=== PATIENT | female | born 1990 | race Two or more races ===

== ENCOUNTER 2024-07-13 06:49 | Emergency (ER) | payer MEDICAID, SELFPAY ==
[2024-07-13 06:51] VITALS: PULSE 68
--- NOTE | 2024-07-13 06:57 | EKG_ITS ---
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
[2024-07-13 07:04] VITALS: BP 116/67; PULSE 68; RESP 16; TEMP 36.9; O2SAT 100
--- NOTE | 2024-07-13 07:15 | EDNOTE_ITS ---
ED Syncope RME/HPI General Chief Complaint: Syncope / Near Syncope Stated Complaint: POSSIBLE SYNCOPAL EPISODE Time Seen by Provider: 07/13/24 07:06 Arrival date/time: 07/13/24 06:49 RME / HPI RME / HPI narrative: 34 year old female with a history of gastric sleeve surgery, cholecystectomy, anxiety (on Clonazepam), presents to the ED [facility] for evaluation of syncopal episodes. The patient reports that while at work today her vision suddenly began blackening. She called out for help and was assisted to a chair, where she lost consciousness. The patient does not recall what occurred while sitting on the chair and woke up to coworkers holding alcohol swabs to her nose. States that while en route home with her , she experienced another episode of blackening vision, accompanied by generalized weakness, and a second syncopal ep isode. States she then woke up to the ambulance personnel assisting her from the car and onto the stretcher. According to her , the patient was speaking normally when she suddenly stopped talking, her body became limp, and she was unresponsive to her name. There was no shaking or stiffening during the event. While in the ED, the patient reports feeling weak and has experienced cold-like symptoms for the past several days. She denies any fevers, chills, chest pain, cough, shortness of breath, abdominal pain, nausea, vomiting, diarrhea, or urinary symptoms. LMP was on 06/25/2024, and she reports being two months late for her period but has not yet taken a test. Related Data Allergies Allergy/AdvReac Type Severity Reaction Status Date / Time No Known Allergies Allergy Verified 09/14/22 17:56 Review of Systems Review of Systems Narrative Review of Systems: Gen: No fever, no chills EYES: No discharge, no visual changes, no pain HEENT: No ear pain, no congestion, no sore throat PULM: no shortness of breath, no cough, no congestion CV: +syncope. No chest pain, no palpitations, no chest tightness GI: No nausea, no vomiting, no diarrhea, no pain, no constipation : No frequency, no urgency,? no dysuria Musc/skel: No joint pain, no back pain Skin: No rash, no ecchymosis, no lesions Psyc: No hallucinations, no depression Heme/Lymph: No easy bleeding or bruising tendencies Neuro: +global weakness, no headache Past Medical History Past Medical History CARDIAC: Negative Cardiac Disorders or Congestive Heart Failure RESPIRATORY: Negative Chronic Obstructive Pulmonary Disease (COPD) or Asthma GENITOURINARY: Negative Renal Disease ENDOCRINE: Negative Diabetes Mellitus Type 1 or Diabetes Mellitus Type 2 HEMATOLOGIC: Negative Sickle Cell Disease (anemic) Social History SMOKING STATUS: Never smoker SUBSTANCE USE: does not use ED Exam Narrative Physical exam: GENERAL APPEARANCE: AxOx4, no obvious distress, nontoxic appearing HEENT: NC, AT. MMM. EOMI, clear conjunctiva, oropharynx clear. NECK: Supple without lymphadenopathy. No stiffness or restricted ROM. HEART: Normal rate and regular rhythm, normal S1/S1, no m/r/g LUNGS: CTAB, moving air well. No crackles or wheezes are heard. ABDOMEN: Soft, nontender, nondistended with good bowel sounds heard. BACK: No midline C/T/L spine pain or deformity, No CVAT, no obvious deformity. EXTREMITIES: Without cyanosis, clubbing or edema. MUSCULOSKELETAL: FROM of all major joints, no chest tenderness NEUROLOGICAL: Grossly nonfocal. Alert and oriented, moving all 4 extremities. CN not formally tested but appear grossly intact. Skin: Warm and dry without any rash. Course Quality Measures none Orders Category Date Time Status EKG (ED ONLY) *Do not use* NOW Care 07/13/24 06:57 Completed EKG (ED Only) Stat Exams 07/13/24 06:57 Draft CBC Stat Lab 07/13/24 07:29 Completed CMP [Comprehensive Metabolic Panel] Stat Lab 07/13/24 07:29 Completed HCG Qualitative,Urine Stat Lab 07/13/24 10:48 Completed Troponin I Stat Lab 07/13/24 07:29 Completed Reevaluation(s) Reevaluation #1: Patient remains clinically stable throughout the emergency department visit. We reviewed all the results, analysis, and treatment plans. Patient is amenable to discharge. Strict return precautions were outlined. Patient was discharged in stable condition. Time: 10:25 Vital Signs Vital signs: Vital Signs Temperature 98.5 F 07/13/24 07:04 Pulse Rate 68 07/13/24 07:04 Respiratory Rate 16 07/13/24 07:04 Blood Pressure 116/67 07/13/24 07:04 Pulse Oximetry (%) 100 07/13/24 07:04 Oxygen Delivery Method Room Air 07/13/24 07:04 Pulse ox is 100% on room air which is adequate. Syncope MDM Narrative MDM Narrative:: Charlene Guevara am scribing for and in the presence of Dr. Crouch. Patient data External records reviewed:: [facility] previous records (I reviewed ED Visit on 01/29/2024 ) and EMS form Clinical information provided by:: patient, EMS and spouse ( adds to hpi) Social determinants that could affect healthcare access:: alcohol use (states she drinks occasionally and last drank 2 days ago ) Patient has the following chronic illnesses:: Anxiety How is presenting disease/condition affected by chronic disease/condition?: exacerbated by Evaluation data The following diagnostics were reviewed and interpreted by me:: lab results and EKG tracing(s) (EKG at 06:59 AM shows sinus rhythm, rate 60, normal axis, normal intervals, no acute ischemic changes, no STEMI. ) Lab and/or radiology exams considered but not ordered:: None Interpretation Summary: As noted above Medications / Prescriptions Medications or Prescriptions considered but not ordered:: None Medication administrations:: None Consultations Consultation(s) initiated? (list below): No Diagnosis Syncope Differential Diagnosis: syncope due to orthostatic hypotension, vasovagal syncope, dehydration and other (Anxiety ) Most likely diagnosis given after review of the tests above:: Vasovagal syncope Anxiety disorder Admission Indicated Admission indicated?: not indicated Admission Request Was there a request for admission?: No Disposition Plan Disposition Plan: Discharge Discharge Attestation Discharge Attestation: The patient and all family members were given an opportunity to ask questions and understood the discharge instructions. Discharge instructions specifically effects, indications for sooner follow up or return to the emergency department, and the expected course of current diagnosis. Patient condition: Stable Discharge Plan Plan Patient Disposition: HOME (Self Care) Prescriptions/Referrals Referrals: No Primary/Family,Physician [Primary Care Provider] - In 1 week Problem List Clinical Impression: Vasovagal syncope, Anxiety disorder Patient/Caregiver Discharge Instructions Education Materials: ED Fainting, Uncertain Cause Additional Instructions: Las pruebas de hoy parecen estar dentro de los l?mites normales. Acuda a heriberto alena de seguimiento con gramajo m?dico de cabecera en 2 o 3 d?as para heriberto nueva evaluaci?n. Puede regresar a urgencias antes si los s?ntomas empeoran o si nota alg?n problema nuevo que le preocupe. Print Language: Bengali Stand Alone Forms: Queenie Award Info., Patient Portal Info Letter
[2024-07-13 08:07] LABS: Basophils % (Auto) 1 % (0-2.5); Eosinophils # (Auto) 0.1 Thou/mm3 (0.0-0.5); Eosinophils % (Auto) 1 % (0-10); Hematocrit 30.1 % (36.0-46.0); Hemoglobin 9.4 g/dL (12.0-16.0); Immature Granulocytes % (Auto) 0 % (0-0); Immature Granulocytes Auto 0.01 Thou/mm3 (0.00-0.00); Lymphocytes # (Auto) 1.4 Thou/mm3 (1.0-4.8); Lymphocytes % (Auto) 27 % (10-50); Mean Corpuscular HGB Conc 31.2 g/dl (31.0-37.0); Mean Corpuscular Hemoglobin 23.9 pg (25.0-35.0); Mean Corpuscular Volume 76 fL (80-100); Monocytes # (Auto) 0.6 Thou/mm3 (0.0-0.8); Monocytes % (Auto) 11 % (0-12); Neutrophils # (Auto) 3.2 Thou/mm3 (1.8-7.7); Neutrophils % (Auto) 61 % (37-80); Nucleated Red Blood Cell % 0 /100 WBC (0); Platelet Count 215 Thou/mm3 (140-440); RDW Standard Deviation 42.9 fL (36.4-46.3); Red Blood Count 3.94 Miln/mm3 (4.00-5.20); White Blood Count 5.4 Thou/mm3 (3.6-11.0)
[2024-07-13 08:29] LABS: Alanine Aminotransferase 8 U/L (10-49); Albumin, Serum 4.3 gm/dL (3.5-5.0); Albumin/Globulin Ratio 1.7 (1.2-2.2); Alkaline Phosphatase 55 U/L (46-116); Anion Gap 7 (7-16); Aspartate Amino Transferase 11 U/L (0-34); BUN/Creatinine Ratio 17 Ratio (12-20); Bilirubin,Total 0.6 mg/dL (0.3-1.2); Blood Urea Nitrogen 12 mg/dL (9-23); Calcium 8.6 mg/dL (8.3-10.6); Calcium (Corrected) 8.6 mg/dL (8.5-10.1); Carbon Dioxide 25.1 mMol/L (20.0-31.0); Chloride 112 mMol/L (98-107); Creatinine (Component) 0.7 mg/dL (0.6-1.3); Globulin 2.5 gm/dL (2.3-3.5); Glucose 95 mg/dL (74-106); Osmolality,Calculated 286 (275-295); Potassium 4.2 mMol/L (3.4-5.1); Sodium 144 mMol/L (136-145); Total Protein 6.8 gm/dL (5.7-8.2); Troponin I < 0.002 ng/mL (0.0-0.045); eGFR > 60 See Note
[2024-07-13 09:06] VITALS: BP 115/65; PULSE 59; RESP 17; TEMP 36.8; O2SAT 100
[2024-07-13 11:01] LABS: HCG Qualitative,Urine Negative
[2024-07-13 11:07] VITALS: BP 126/79; PULSE 62; RESP 17; TEMP 37; O2SAT 100
== END 2024-07-13 11:39 | disposition home or self-care (01) ==
PROVIDERS: Emergency Provider Emergency Medicine
DX: F41.9 Anxiety disorder, unspecified (principal); R55 Syncope and collapse
CPT/HCPCS: 36415; 80053; 81025; 84484; 85025; 93005; 99283